=== PATIENT | female | born 1955 | race Caucasian/White ===

== ENCOUNTER → 2016-11-27 | Day surgery (SDC) | payer MEDICAID ==
[~2016-11-27] VITALS: Ht 165.1 cm; Wt 99.8 kg
[~2016-11-27] MED LIST: AMBIEN10 MG PO; ASPIRIN 81MG TA81 MG PO; AUGMENTIN 875-1 EACH PO; CHEWABLE ASPIRI81 MG PO; D-31000 IU PO; DICLOFENAC SODI50 M1 PO; DITROPAN 5MG TAB5 MG PO; ESTRADIOL1 MG OR; FENOFIBRATE160 MG PO; FENOFIBRATE43 M1 PO; FENOFIBRATE48 MG PO; GABAPENTIN800 MG PO; GLIMEPIRIDE4 MG PO; GLYBURIDE 5MG TA5 MG PO; HUMALOG PEN100 U/ML SC; HUMULIN N100 UNITS/ SC; IMDUR 30MG. TAB30 MG PO; LANTUS INS100 UNITS/ SC; LASIX40 MG PO; LEVEMIR 10100 UNITS/ SC; LYRICA25 MG PO; METFORMIN1000 MG PO; METOPROLOL25 MG PO; NORCO 325 MG-51 TAB PO; NOVOLOG FLEX100 U/ML SC; NUVIGIL250 MG PO; OMEPRAZOLE40 MG PO; ONGLYZA5 MG PO; PLAVIX 75MG TAB75 MG PO; PRAVASTATIN 20M20 MG PO; SERTRALINE 50MG50 MG PO; SYNTHROID 0.10.15 MG PO; SYNTHROID0.125 MG PO; TRAMADOL 50MG T50 M1 PO; TRAMADOL 50MG T50 MG PO; VICTOZA6 MG/ML SC; VISTARIL25 MG PO; WELLBUTRIN 75MG75 MG PO
[2016-11-27 08:30] VITALS: BP 132/70
[2016-11-27 08:43] VITALS: BP 132/70
[2016-11-27 08:47] VITALS: BP 147/86
--- NOTE | 2016-11-27 08:59 | Procedure Note ---
Procedure detail Date of procedure: 11/27/16 Anesthesiologist: Lei Swanson CRNA Complications: None Pre-procedure diagnosis: Facet Arthropathy Post-procedure diagnosis: Same Indications for procedure: This patient is a pleasant 61-year-old white female who we have been treating for degenerative disc disease of lumbar spine with lumbar spondylosis and multilevel lumbar facet arthropathy. She has had multiple medial branch blocks at L4-L5 and L5-S1 with 75-80 percent relief in her pain symptoms. Her pain is starting to return. Patient states she had 80 percent improvement terms of her LEFT side lumbar spine after radiofrequency ablation. I believe she would be a good candidate for radio frequency ablation to the facet joint/medial branches of L4-L5 and L5-S1. We will perform this procedure on the Right side today. Procedure detail: The procedure was explained to the patient in detail. Consent form was signed. Patient was taken back to the procedure room, where noninvasive monitors were placed. This included noninvasive blood pressure cuff and pulse oximeter. The patient was placed prone on the C-arm table. The area over the lumbar spine was cleansed using chlorhexidine as cleansing solution. Using fluoroscopy guidance, markers were placed over the pedicle at the RIGHT [ L4, L5] as well as over the [sacral ala]. 1% Lidocaine was used to anesthetize the skin with a 25-gauge needle at these markers. Using fluoroscopy guidance the radiofrequency probe was used to access the superior margin of the pedicle at [ L4, L5 and the sacral ala ]. After negative sensory and motor stimulation, 2 mls of 0.25% Marcaine and 10 mg of Depo-Medrol were injected into each needle. We then proceeded with radial frequency ablation at all 3 levels at 80 degrees Celsius 60 seconds. After the lesion was formed the needles were withdrawn. Band-Aids were applied. The patient tolerated the procedure without difficulty. There were no complications Plan and disposition: Patient was reevaluated 10 minutes post procedure. Patient reports one or percent improvement terms of her RIGHT lumbar back pain. Patient will follow-up with us in the clinic and we will reassess her symptoms at that time. at [id number]
[2016-11-27 09:00] VITALS: BP 132/70
== END ==
LOC: PM 08:14
PROC: 3E0T3TZ Introduction of Destructive Agent into Peripheral Nerves and Plexi, Percutaneous Approach (ICD-10-PCS; principal; 2016-11-27)
PROC: BR161ZZ Fluoroscopy of Lumbar Facet Joint(s) using Low Osmolar Contrast (ICD-10-PCS; 2016-11-27)
DX: M54.06 Panniculitis affecting regions of neck and back, lumbar region (principal); M51.36 Other intervertebral disc degeneration, lumbar region; M47.896 Other spondylosis, lumbar region
CPT/HCPCS: J1030

== ENCOUNTER → 2016-12-29 | Outpatient (CLI) | payer MEDICAID ==
[2016-12-29 14:53] LABS: URINE BILIRUBIN - DIPSTICK NEGATIVE (NEG); URINE BLOOD NEGATIVE (NEG)
[2016-12-29 15:12] LABS: HEMOGLOBIN 13.5 g/dL (12.2-16.2); LYMPH # 2.7 K/mm3 (0.7-4.5); LYMPH % 29.1 % (10-50.0)
--- NOTE | 2016-12-29 15:51 | RADIOLOGY REPORT PS360 ---
CHEST(2 VIEWS-NOT PORTABLE) HISTORY: HTN ORDERING PHYSICIAN: Tam Adams MD PATIENT AGE: 61 years COMPARISON: 07/15/2015 FINDINGS: There is mild cardiomegaly without failure. There is a nodular opacity left suprahilar region which may represent a granuloma at 9 mm. There are increased markings in the right midlung and right lung base which are chronic have an a similar appearance on the previous exam. No lobar consolidation or collapse is evident. No effusions. Chronic changes lumbar spine. IMPRESSION: 1. Mild cardiomegaly without failure. 2. Chronic changes as described above with no acute finding
[2016-12-29 15:53] LABS: URINE SQUAMOUS CELLS OCC #/hpf (0-5)
== END ==
LOC: LAB 14:39
PROVIDERS: Obstetrics & Gynecology
DX: N81.9 Female genital prolapse, unspecified (principal); N39.3 Stress incontinence (female) (male); Z01.810 Encounter for preprocedural cardiovascular examination; Z01.812 Encounter for preprocedural laboratory examination; Z01.818 Encounter for other preprocedural examination

== ENCOUNTER → 2017-06-28 | Outpatient (CLI) | payer MEDICAID ==
[~2017-06-28] MED LIST changes: +BASAGLAR K100 UNIT/1 SQ; +BRILINTA90 MG PO; +BUPROPION HCL150 M1 PO; +OMEPRAZOLE20 MG PO; +SYNTHROID0.175 MG PO
[2017-06-28 17:58] LABS: HEMOGLOBIN 14.6 g/dL (12.2-16.2); LYMPH # 1.9 K/mm3 (0.7-4.5)
[2017-06-28 18:11] LABS: BUN 11 mg/dL (7-18)
[2017-06-28 18:25] LABS: GFR (ESTIMATED) 64 ML/MIN (59-)
[2017-06-30 10:39] LABS: Creatinine, Urine 26.6 mg/dL (Not Estab.); Microalbumin, Urine <3.0 ug/mL (Not Estab.)
== END ==
LOC: LAB 15:49
PROVIDERS: Emergency Medicine
DX: E11.9 Type 2 diabetes mellitus without complications (principal)

== ENCOUNTER → 2017-08-16 | Outpatient (CLI) | payer MEDICAID ==
--- NOTE | 2017-08-18 19:07 | RADIOLOGY REPORT PS360 ---
DIG MAMM-SCREEN [facility] W/CAD CAD Screening COMPARISON: Digital mammograms 03/17/2016 INDICATION: There is no personal or family history of breast cancer. TECHNIQUE: Standard CC and MLO images were obtained. R2 CAD reviewed. FINDINGS: The breasts are composed primarily of fat with scattered fibroglandular densities throughout both breast primarily upper outer quadrants. There is arterial calcification in each breast. There is no suspicious lesion and no suspicious microcalcifications. There are few scattered benign-appearing calcination is in each breast. Several fatty replaced nodes both axilla. IMPRESSION: Fibrofatty parenchyma with no suspicious lesion seen recommend yearly follow-up BI-RADS CATEGORY: 2_Benign RECOMMENDED FOLLOWUP: 12M 12 MONTH FOLLOW-UP (A letter has been sent to the patient regarding results of the study.)
== END ==
LOC: RAD 07:56
DX: Z12.31 Encounter for screening mammogram for malignant neoplasm of breast (principal)

== ENCOUNTER → 2017-09-24 | Outpatient (CLI) | payer MEDICAID ==
[2017-09-24 16:01] LABS: HEMOGLOBIN 13.3 g/dL (12.2-16.2); LYMPH % 25.3 % (10-50.0)
[2017-09-24 17:16] LABS: BUN 15 mg/dL (7-18)
[2017-09-24 17:27] LABS: GFR (ESTIMATED) 50 ML/MIN (59-)
== END ==
LOC: LAB 15:51
PROVIDERS: Emergency Medicine
DX: E11.9 Type 2 diabetes mellitus without complications (principal); E03.9 Hypothyroidism, unspecified